=== PATIENT | female | born 1980 | race Native Hawaiian/Other Pacific Islander ===

== ENCOUNTER 2019-01-23 13:47 | Outpatient (CLI) | payer BC | END 2019-01-23 20:33 | disposition home or self-care (01) | LOC: LABW 13:47 | DX: B35.1 Tinea unguium (principal) | CPT/HCPCS: 36415; 84450; 84460 ==

== ENCOUNTER 2019-03-03 12:02 | Outpatient (CLI) | payer BC | END 2019-03-03 19:45 | disposition home or self-care (01) | LOC: LABW 12:02 | DX: B35.1 Tinea unguium (principal) | CPT/HCPCS: 36415; 84450; 84460 ==